=== PATIENT | male | born 1960 | race Caucasian/White ===

== ENCOUNTER 2016-12-14 18:04 | Emergency (ER) | payer MEDICAID ==
[~2016-12-14] VITALS: Ht 165.1 cm; Wt 54.0 kg
[2016-12-14 18:10] VITALS: BP_SYST 158
[2016-12-14 18:37] VITALS: BP_SYST 159
== END 2016-12-14 18:37 ==
LOC: SED 18:04
DX: Z02.89 Encounter for other administrative examinations (principal); I10 Essential (primary) hypertension
CPT/HCPCS: 99283